=== PATIENT | female | born 1950 | race Caucasian/White ===

== ENCOUNTER 2018-07-08 06:58 | Inpatient (IN) | payer MEDICARE, OTHER ==
[2018-07-03 10:29] VITALS: BP 157/81
[~2018-07-08] VITALS: Ht 160 cm; Wt 63.5 kg
[~2018-07-08 06:58] MED LIST: BACITRACIN 50,000 UNIT ONE; BUPIVACAINE/PF-EPI 0.5% 1:200K ONE; BUPR150T6 PO; DIPH-423 PO; DOCU-131 PO; LOSA25TA6 PO; THROMBIN 20,000 UNIT VIAL TP ONE
[2018-07-08] MEDS ORDERED: LACTATED RINGERS 1,000 ML IV SCH (07:30)
[2018-07-08] MEDS ORDERED: LIDOCAINE-MPF 1%, 2ML INFIL ONE (07:30)
[2018-07-08] MEDS ORDERED: ONDANSETRON ODT 8 MG PO ONE (07:30)
[2018-07-08] MEDS ORDERED: ACETAMINOPHEN 500 MG TABLET PO ONE (07:30)
[2018-07-08] MEDS ORDERED: GABAPENTIN 300 MG CAPSULE PO ONE (07:30)
[2018-07-08] MEDS ORDERED: CYAN10005 PO (07:42)
[2018-07-08] MEDS ORDERED: VIT1CAPS42 PO (07:42)
[2018-07-08] MEDS ORDERED: FLAX1CAP PO (07:42)
[2018-07-08] MEDS ORDERED: ASPI-496 PO (07:42)
[2018-07-08] MEDS ORDERED: MULT-658 PO (07:42)
[2018-07-08] MEDS ORDERED: [UNRECOGNIZED DRUG - CODE] PO (07:42)
[2018-07-08] MEDS ORDERED: CALC-451 PO (07:42)
[2018-07-08] MEDS ORDERED: CHOL200074 PO (07:42)
[2018-07-08] MEDS ORDERED: PROPOFOL 50 ML ONE (07:48)
[2018-07-08] MEDS ORDERED: FENTANYL PF 250 MCG/5ML ONE (07:49)
[2018-07-08] MEDS ORDERED: MIDAZOLAM 1 MG/ML, 2ML ONE (07:49)
[2018-07-08] MEDS ORDERED: PROPOFOL 10 MG/ML, 20ML ONE (07:56)
[2018-07-08] MEDS ORDERED: SUCCINYLCHOLINE 20 MG/ML, 10ML ONE (07:57)
[2018-07-08] MEDS ORDERED: LIDOCAINE-MPF 2% ,5ML ONE (08:03)
[2018-07-08] MEDS ORDERED: PHENYLEPHRINE 10 MG/ML ONE (08:12)
[2018-07-08] MEDS ORDERED: DEXAMETHASONE 4 MG/ML, 1ML ONE ×2 (09:44)
[2018-07-08] MEDS ORDERED: CEFAZOLIN 1,000 MG ONE ×2 (09:49)
[2018-07-08] MEDS ORDERED: ROCURONIUM 10 MG/ML,10ML ONE (09:54)
[2018-07-08] MEDS ORDERED: MIDAZOLAM 1 MG/ML, 2ML IV PRN (10:30)
[2018-07-08] MEDS ORDERED: EPHEDRINE 50 MG/ML, 1ML IVPush PRN (10:30)
[2018-07-08] MEDS ORDERED: DIPHENHYDRAMINE 50 MG/ML, 1ML IVPush PRN (10:30)
[2018-07-08] MEDS ORDERED: OXYcodone 5 MG/5 ML ORAL.SOL UDC PO PRN (10:30)
[2018-07-08] MEDS ORDERED: hydrALAzine 20 MG/ML, 1ML IV PRN (10:30)
[2018-07-08] MEDS ORDERED: LABETALOL 5MG/ML, 20ML IV PRN (10:30)
[2018-07-08] MEDS ORDERED: LORazepam 2 MG/ML, 1ML IVPush PRN (10:30)
[2018-07-08] MEDS ORDERED: PROCHLORPERAZINE 5 MG/ML, 2ML IV PRN (10:30)
[2018-07-08] MEDS ORDERED: MORPHINE SULFATE 4 MG/ML, 1ML IVPush PRN (10:30)
[2018-07-08] MEDS ORDERED: ALBUTEROL SULFATE 2.5 MG/3 ML NPPB PRN (10:30)
[2018-07-08] MEDS ORDERED: FENTANYL PF 100 MCG/2ML IV PRN (10:30)
[2018-07-08] MEDS ORDERED: DIAZEPAM 5 MG/ML, 2ML IVPush PRN (10:30)
[2018-07-08] MEDS ORDERED: MEPERIDINE/PF 25MG/0.5ML IVPush PRN (10:30)
[2018-07-08] MEDS ORDERED: METOPROLOL 1 MG/ML, 5ML IV PRN (10:30)
[2018-07-08] MEDS ORDERED: HYDROmorphone 2 MG/ML, 1ML ONE (12:19)
[2018-07-08] MEDS ORDERED: OXYcodone 5 MG/5 ML ORAL.SOL UDC ONE (12:19)
[2018-07-08] MEDS: HYDROmorphone 1 MG/ML, 1ML IV PRN ×4 (12:25→13:10)
[2018-07-08] MEDS ORDERED: KETOROLAC 30 MG/1 ML IV ONE (15:00)
[2018-07-08] MEDS ORDERED: ACETAMINOPHEN 650 MG SUPP PR PRN (15:00)
[2018-07-08] MEDS ORDERED: MAGNESIUM HYDROXIDE 8%, 30ML UDC PO PRN (15:00)
[2018-07-08] MEDS ORDERED: ONDANSETRON 2MG/ML, 2ML IV PRN (15:00)
[2018-07-08] MEDS ORDERED: PROMETHAZINE 25 MG/ML, 1ML IM PRN (15:00)
[2018-07-08] MEDS ORDERED: DIPHENHYDRAMINE 50 MG CAPSULE PO PRN (15:00)
[2018-07-08] MEDS ORDERED: METHOCARBAMOL 1,000 MG in DEXTROSE 5% 100 ML IV ONE (15:00)
[2018-07-08] MEDS ORDERED: ACETAMINOPHEN 325 MG TABLET PO PRN (15:00)
[2018-07-08] MEDS ORDERED: morphine SULFATE 10 MG/ML, 1ML IV PRN (15:00)
[2018-07-08] MEDS ORDERED: BISACODYL 10 MG SUPP PR PRN (15:00)
[2018-07-08] MEDS: NS + 20MEQ KCL 1,000 ML IV SCH (15:40)
[2018-07-08] MEDS ORDERED: CYCLOBENZAPRINE 10 MG TABLET PO PRN (16:00)
[2018-07-08] MEDS: CEFAZOLIN PMX 1GM/50ML 50 ML IVPB SCH (18:03)
[2018-07-08] MEDS ORDERED: ZOLPIDEM 5MG TABLET PO PRN (21:00)
[2018-07-08] MEDS: CALCIUM/VITAMIN D3 250-125 TABLET PO SCH (21:02)
[2018-07-08 21:11] VITALS: BP 136/66
[2018-07-08] MEDS: KETOROLAC 30 MG/1 ML IV SCH (22:42)
[2018-07-08] MEDS: METHOCARBAMOL 750 MG in DEXTROSE 5% 100 ML IV SCH (22:46)
[2018-07-08 23:54] VITALS: BP 117/63
[2018-07-09] MEDS: HYDROcodone/APAP 10/325 MG TABLET PO PRN ×2 (00:45→06:46)
[2018-07-09] MEDS: CEFAZOLIN PMX 1GM/50ML 50 ML IVPB SCH (02:19)
[2018-07-09 03:55] VITALS: BP 147/66
[2018-07-09] MEDS: NS + 20MEQ KCL 1,000 ML IV SCH ×2 (05:04→07:42)
[2018-07-09] MEDS: METHOCARBAMOL 750 MG in DEXTROSE 5% 100 ML IV SCH (06:39)
[2018-07-09] MEDS: KETOROLAC 30 MG/1 ML IV SCH (06:40)
[2018-07-09 07:07] VITALS: BP 137/69
[2018-07-09] MEDS ORDERED: DEXAMETHASONE 4 MG/ML, 1ML IVPush ONE (07:30)
[2018-07-09] MEDS ORDERED: DEXAMETHASONE 4 MG/ML, 1ML ONE (07:34)
[2018-07-09] MEDS: CALCIUM/VITAMIN D3 250-125 TABLET PO SCH (08:12)
[2018-07-09] MEDS ORDERED: SENNA/DOCUSATE TABLET PO SCH (09:00)
[2018-07-09] MEDS ORDERED: MULTIVITAMINS/MINERALS TABLET PO SCH (09:00)
[2018-07-09] MEDS ORDERED: ASCORBIC ACID 500 MG TABLET PO SCH (09:00)
[2018-07-09] MEDS ORDERED: DOCUSATE 100 MG CAPSULE PO SCH (09:00)
[2018-07-09] MEDS ORDERED: BUPROPION 150 MG PO SCH (09:00)
[2018-07-09] MEDS ORDERED: CHOLECALCIFEROL 1,000 UNIT TABLET PO SCH (09:00)
[2018-07-09] MEDS ORDERED: LOSARTAN 25MG TABLET PO SCH (09:00)
[2018-07-09] MEDS ORDERED: DEXAMETHASONE 4 MG/ML, 1ML IVPush SCH (11:00)
[2018-07-09] MEDS ORDERED: HYDR-3307 PO (12:42)
[2018-07-09] MEDS ORDERED: CYCL-259 PO (12:45)
[2018-07-09] MEDS ORDERED: METH4TAB2 PO (12:47)
[2018-07-09 13:16] VITALS: BP 113/66
[2018-07-10] MEDS ORDERED: CYANOCOBALAMIN 1,000 MCG TABLET PO SCH (09:00)
[2018-07-10] MEDS ORDERED: METHOCARBAMOL 750 MG TABLET PO SCH (23:00)
== END 2018-07-09 15:05 | disposition home or self-care (01) | DRG 472 ==
LOC: ORIP 06:58 → 4NOR 14:20 → DCLOUNGE 07-09 14:44
PROVIDERS: ADMIT Neurological Surgery; ATTEND Neurological Surgery
PROC: 0RB30ZZ Excision of Cervical Vertebral Disc, Open Approach (ICD-10-PCS; 2018-07-08)
PROC: 4A11X4G Monitoring of Peripheral Nervous Electrical Activity, Intraoperative, External Approach (ICD-10-PCS; 2018-07-08)
PROC: 0RG20A0 Fusion of 2 or more Cervical Vertebral Joints with Interbody Fusion Device, Anterior Approach, Anterior Column, Open Approach (ICD-10-PCS; principal; 2018-07-08 09:00)
DX: M48.02 Spinal stenosis, cervical region (principal); G95.9 Disease of spinal cord, unspecified; G95.20 Unspecified cord compression; I10 Essential (primary) hypertension; M54.12 Radiculopathy, cervical region; M19.90 Unspecified osteoarthritis, unspecified site; G89.29 Other chronic pain; Z90.710 Acquired absence of both cervix and uterus; Z82.49 Family history of ischemic heart disease and other diseases of the circulatory system
CPT/HCPCS: 72040; 93005; C1713; C9359; G0378; J0690; J1100; J1170; J1885; J2250; J2704; J3010; J3480; J3490; Q0162; J0330; J2270; J2370; J2800; J7120